=== PATIENT | female | born 2000 | race Caucasian/White ===

== ENCOUNTER 2024-07-12 16:45 | Emergency (ER) | payer OTHER, SELFPAY ==
[2024-07-12 16:53] VITALS: BP 101/79; PULSE 120; TEMP 36.9; O2SAT 98; BMI 31.6
--- NOTE | 2024-07-12 17:01 | ED.GENADUL1 ---
HPI HPI - General Adult General Stated complaint: SORE THROAT Time Seen by Provider: 07/12/24 16:52 Source: patient Mode of arrival: walk-in Limitations: no limitations History of Present Illness HPI narrative: 23-year-old female presents to the emergency department for sore throat that she has had for the past day. No fever. It hurts more when she swallows. No cough or vomiting or diarrhea. Related Data Previous Rx's ?Medication ?Instructions ?Recorded penicillin V potassium 250 mg 250 mg PO QID 10 days #40 tabs 07/12/24 tablet Allergies Allergy/AdvReac Type Severity Reaction Status Date / Time No Known Drug Allergies Allergy Verified 07/12/24 16:53 Opioid HPI Opioid Management Most Recent Opioid Data: No Data to Display Review of Systems ROS Narrative A ten point review of systems is negative except as noted above. PFSH PFSH Social History Little interest or pleasure in doing things: not at all Feeling down, depressed, or hopeless: not at all Exam Narrative Exam Narrative: Nurses note and vital signs reviewed and patient is not hypoxic. General: The patient appears well and in no apparent distress. Patient is resting comfortably on cart. Skin: Warm, dry, no pallor noted. There is no rash noted. Head: Normocephalic, atraumatic Eye: Normal conjunctiva, no drainage Ears, Nose, Mouth, and Throat: oral mucosa is moist. Nares patent. Mild pharyngeal erythema present. Both tonsils seem enlarged, symmetrically. No peritonsillar swelling or uvular deviation. No swelling to the floor of her mouth. She is handling her oral secretions well Cardiovascular: Regular Rate and Rhythm Respiratory: Patient is in no distress, no accessory muscle use, lungs are clear to auscultation, no wheezing, rales or rhonchi Back: non-tender GI: Soft and nontender Musculoskeletal: No joint swelling Neurological: A&O, normal speech Psychiatric: Cooperative Constitutional Vital Signs, click to edit/add: Last Vital Signs Temp 98.4 F 07/12/24 16:53 Pulse 120 H 07/12/24 16:53 Resp 18 07/12/24 16:53 BP 101/79 07/12/24 16:53 Pulse Ox 98 07/12/24 16:53 O2 Del Method Room Air 07/12/24 16:53 Course Vital Signs Vital signs: Vital Signs Temperature 98.4 F 07/12/24 16:53 Pulse Rate 120 H 07/12/24 16:53 Respiratory Rate 18 07/12/24 16:53 Blood Pressure 101/79 07/12/24 16:53 Pulse Oximetry 98 07/12/24 16:53 Oxygen Delivery Method Room Air 07/12/24 16:53 Temperature 98.4 F 07/12/24 16:53 Pulse Rate 120 H 07/12/24 16:53 Respiratory Rate 18 07/12/24 16:53 Blood Pressure 101/79 07/12/24 16:53 Pulse Oximetry 98 07/12/24 16:53 Oxygen Delivery Method Room Air 07/12/24 16:53 Medical Decision Making MDM Narrative Medical decision making narrative: Strep test is positive. She was given IM Decadron here and prescribed penicillin. Treatment diagnosis and follow-up were discussed with the patient and her mother. Differential Diagnosis Differential Diagnosis: Strep throat, viral pharyngitis, mono Lab Data Lab results reviewed: Yes I reviewed the patient's lab results Labs: Lab Results 07/12/24 Range/Units 16:58 Streptococcus Screen Positive A Discharge Plan Discharge Clinical Impression: Strep throat Patient Disposition: Home, Self-Care Time of Disposition Decision: 17:22 Condition: Good Mode of Transportation: Private Vehicle Prescriptions / Home Meds: New penicillin V potassium 250 mg tablet 250 mg PO QID 10 Days Qty: 40 0RF Print Language: [place] Instructions: Strep Throat (ED) Referrals: GERSON MACEDO [Primary Care Provider] - 1 week
[2024-07-12] MEDS: DEXAMETHASONE SOD PHOS 10 MG/ML VIAL IM (17:10)
[2024-07-12 17:19] LABS: Internal Control Within Normal Limits; Strep A Antigen Screen Positive
== END 2024-07-12 17:37 | disposition home or self-care (01) ==
PROVIDERS: Emergency Provider Emergency Medicine; Family Provider Family Medicine; PCP Nurse Practitioner Family
DX: J02.0 Streptococcal pharyngitis (principal)
CPT/HCPCS: 87880; 96372; 99284; J1100